=== PATIENT | female | born 1985 | race African-American/Black ===

== ENCOUNTER 2018-08-07 17:34 | Emergency (ER) | payer MEDICAID, OTHER ==
[~2018-08-07] VITALS: Ht 175.3 cm; Wt 59.0 kg
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
[2018-08-07 20:43] VITALS: BP 130/80
== END 2018-08-07 20:50 | disposition home or self-care (01) ==
LOC: ER 17:42
DX: T74.21XA Adult sexual abuse, confirmed, initial encounter (principal); S80.02XA Contusion of left knee, initial encounter; X58.XXXA Exposure to other specified factors, initial encounter; Y93.89 Activity, other specified; Y92.89 Other specified places as the place of occurrence of the external cause; Y99.8 Other external cause status